=== PATIENT | male | born 1980 | race Caucasian/White ===

== ENCOUNTER 2024-01-01 14:09 | Emergency (ER) | payer MEDICAID ==
[2024-01-01 14:59] LABS: BASOPHILS % (AUTO) 0.9 %; EOSINOPHILS # (AUTO) 0.1 10^3/uL (0.0-0.7); EOSINOPHILS % (AUTO) 1.1 %; HCT - HEMATOCRIT 44.7 % (42.0-52.0); HGB - HEMOGLOBIN 14.6 g/dL (14.0-18.0); LYMPHOCYTES # (AUTO) 2.2 10^3/uL (1.5-3.5); LYMPHOCYTES % (AUTO) 50.3 %; MEAN CORPUSCULAR HEMOGLOBIN 28.5 pg (27.0-31.0); MEAN CORPUSCULAR HGB CONC 32.7 g/dL (32.0-36.0); MEAN CORPUSCULAR VOLUME 87.3 fL (80.0-94.0); MEAN PLATELET VOLUME 9.7 fL (7.4-11.4); MONOCYTES # (AUTO) 0.2 10^3/uL (0.0-1.0); MONOCYTES % (AUTO) 3.4 %; NEUTROPHILS # (AUTO) 1.9 10^3/uL (1.5-6.6); NEUTROPHILS % (AUTO) 44.1 %; PLT - PLATELET COUNT 219 10^3/uL (130-450); RED BLOOD COUNT 5.12 10^6/uL (4.70-6.10); RED CELL DISTRIBUTION WIDTH 12.9 % (12.0-15.0); WHITE BLOOD COUNT 4.4 x10^3/uL (4.8-10.8)
[2024-01-01 15:12] LABS: BILIRUBIN,URINE NEGATIVE (NEGATIVE); GLUCOSE, URINE (UA) >=1000 mg/dL (NEGATIVE); KETONES,URINE (UA) NEGATIVE (NEGATIVE); LEUKOCYTE ESTERASE, URINE NEGATIVE (NEGATIVE); NITRITE,URINE NEGATIVE (NEGATIVE); OCCULT BLOOD,URINE NEGATIVE (NEGATIVE); PH,URINE 5.5 PH (5.0-7.5); PROTEIN,URINE NEGATIVE (NEGATIVE); UROBILINOGEN,URINE 0.2 (NORMAL) E.U./dL (NORMAL)
[2024-01-01 15:17] LABS: ALBUMIN 4.5 g/dL (3.2-5.5); ALKALINE PHOSPHATASE 74 IU/L (42-121); ALT ALANINE AMINOTRANSFERASE 32 IU/L (10-60); AST ASPARTATE AMINOTRANSFERASE 30 IU/L (10-42); BILIRUBIN,TOTAL 0.8 mg/dL (0.2-1.0); BUN - BLOOD UREA NITROGEN 9 mg/dL (6-20); CARBON DIOXIDE - CO2 28 mmol/L (21-32); CHLORIDE 106 mmol/L (101-111); CREATININE 0.7 mg/dL (0.6-1.3); GFR - MDRD 123 (>89); GLUCOSE 327 mg/dL (74-104); POTASSIUM 3.9 mmol/L (3.5-4.5); SODIUM 140 mmol/L (135-145); TOTAL PROTEIN 6.8 g/dL (6.4-8.9)
[2024-01-01 15:19] LABS: CLARITY,URINE CLEAR (CLEAR)
[2024-01-01 15:26] LABS: LIPASE < 10 U/L (11-82)
--- NOTE | 2024-01-01 16:10 | ED Physician Documentation ---
History of Present Illness - Stated complaint Stated Complaint: ETOH W/D - Chief complaint Chief Complaint: Abd Pain - Additonal information Additional information: 43-year-old male with history of type 1 diabetes pancreatitis alcohol dependence presents emergency department with his friend for alcohol intoxication. His friend is going to take him to a rehab facility but given how intoxicated the patient was he told him that he needed to come into the emergency department for further evaluation and clearance of health. Patient is very intoxicated very difficult time getting any history from him he does complain and intermittent abdominal pain he appears comfortable lying in bed. PD PAST MEDICAL HISTORY - Present Medications Home Medications: Ambulatory Orders Medication Instructions Recorded Confirmed Propranolol [Inderal] 10 mg PO DAILY 01/01/24 01/01/24 busPIRone [Buspar] 15 mg PO DAILY 01/01/24 01/01/24 - Allergies Allergies/Adverse Reactions: Allergies Allergy/AdvReac Type Severity Reaction Status Date / Time No Known Drug Allergies Allergy Verified 01/01/24 16:46 PD ED PE NORMAL - Vitals Vital signs reviewed: Yes - General General: No acute distress, Well developed/nourished - HEENT HEENT: Atraumatic, PERRL - Cardiac Cardiac: RRR - Respiratory Respiratory: No respiratory distress - Abdomen Abdomen: Normal bowel sounds, Soft, Non tender, No organomegaly - Back Back: No CVA TTP - Derm Derm: Normal color, Warm and dry, No rash - Extremities Extremities: No deformity, No tenderness to palpate, Normal ROM s pain, No edema, No calf tenderness / cord PD ED PE EXPANDED - Psych Psych: Intoxicated / AOB, Agitated. No: Depressed, Suicidal, Homicidal, Pressured speech Results - Vitals Vitals: Vital Signs - 24 hr 01/01/24 01/01/24 01/01/24 14:33 16:42 18:55 Temperature 36.1 C L 36.5 C Heart Rate 83 85 88 Respiratory 16 16 18 Rate Blood Pressure 127/87 H 126/91 H 125/92 H O2 Saturation 99 99 100 Oxygen O2 Source Room air - Labs Labs: Laboratory Tests 01/01/24 01/01/24 01/01/24 14:43 14:54 14:54 WBC 4.4 L RBC 5.12 Hgb 14.6 Hct 44.7 MCV 87.3 MCH 28.5 MCHC 32.7 RDW 12.9 Plt Count 219 MPV 9.7 Neut # (Auto) 1.9 Lymph # (Auto) 2.2 Young # (Auto) 0.2 Eos # (Auto) 0.1 Baso # (Auto) 0.0 Absolute Nucleated RBC 0.00 Nucleated RBC % 0.0 Sodium 140 Potassium 3.9 Chloride 106 Carbon Dioxide 28 Anion Gap 6.0 BUN 9 Creatinine 0.7 Estimated GFR (MDRD) 123 Glucose 327 H Calcium 9.0 Total Bilirubin 0.8 AST 30 ALT 32 Alkaline Phosphatase 74 Total Protein 6.8 Albumin 4.5 Globulin 2.3 Albumin/Globulin Ratio 2.0 Lipase < 10 L Urine Color YELLOW Urine Clarity CLEAR Urine pH 5.5 Ur Specific [place] 1.020 Urine Protein NEGATIVE Urine Glucose (UA) >=1000 H Urine Ketones NEGATIVE Urine Occult Blood NEGATIVE Urine Nitrite NEGATIVE Urine Bilirubin NEGATIVE Urine Urobilinogen 0.2 (NORMAL) Ur Leukocyte Esterase NEGATIVE Ur Microscopic Review NOT INDICATED Urine Culture Comments NOT INDICATED Ethyl Alcohol 01/01/24 16:19 WBC RBC Hgb Hct MCV MCH MCHC RDW Plt Count MPV Neut # (Auto) Lymph # (Auto) Young # (Auto) Eos # (Auto) Baso # (Auto) Absolute Nucleated RBC Nucleated RBC % Sodium Potassium Chloride Carbon Dioxide Anion Gap BUN Creatinine Estimated GFR (MDRD) Glucose Calcium Total Bilirubin AST ALT Alkaline Phosphatase Total Protein Albumin Globulin Albumin/Globulin Ratio Lipase Urine Color Urine Clarity Urine pH Ur Specific [place] Urine Protein Urine Glucose (UA) Urine Ketones Urine Occult Blood Urine Nitrite Urine Bilirubin Urine Urobilinogen Ur Leukocyte Esterase Ur Microscopic Review Urine Culture Comments Ethyl Alcohol 441.5 - Rads (name of study) Abdominal ultrasound Relevant Findings:: Final report received, EMP independent interpretation of test, Other (Limited study due to patient motion and overlying bowel gas, possible cirrhosis with recannulized umbilical) PD Medical Decision Making - ED course ED course: 43-year-old male presents emergency department quite intoxicated. Is unclear how much she had to drink today as he is not really contributing to the history and providing accurate information. His alcohol level was 441 blood sugars 327 patient is type I diabetic and manages this blood sugars with insulin. Lipase is less than 10 and other than that unremarkable labs. Ultrasound was complete as patient was complaining of some right upper quadrant pain and was worried that something is wrong with his pancreas, lipase again is within normal limits there is limited study due to motion and overlying bowel gas he does have ci rrhosis with recanalized umbilical vein normal-appearing gallbladder with small amount of sludge material. There is no further emergent workup indicated at this point in time he is safe to go to rehab facility he appears to be sobering up and making more sense. Patient says that he wants to go to rehab his friend who is at bedside plans on driving him to rehab where they have confirmed they still have a bed waiting for him. Return precautions given patient safe for discharge no history of withdrawal seizures. Departure - Departure Disposition: 01 Home, Self Care Clinical Impression: ETOH abuse Instructions: ED Alcohol Abuse Comments: PT NAME: JADON MELENDEZ MR#: [id number] REG ER/ED AGE: 43 CI DT/TM: 01/01/24 PCP: : 1980 ATT: SEX: M ORD: [facility] EXAM: [id number] US/ABDLTD ([id number]) PROCEDURE: Abdomen Limited INDICATIONS: RUQ pain, hx of pancreatitis TECHNIQUE: Real-time focused scanning was performed of the abdomen, with image documentation. See below for your abdominal ultrasound results you have been medically cleared to go to rehab. Your labs do not show any significant abnormalities to make sure that you give yourself insulin for your high blood sugar. COMPARISONS: None. FINDINGS: Liver: Liver is normal in size. Heterogeneously echogenic liver parenchyma is seen. No discrete hepatic lesion is noted. Normal hepatopedal flow is seen within the main portal vein. Tubular structure is noted extending from the liver to the umbilicus and may represent recanalized umbilical vein. Gallbladder: Possible sludge material within gallbladder lumen. No gallstones. No gallbladder wall thickening or pericholecystic fluid. No sonographic Tucker's sign. Biliary ducts: Intrahepatic bile ducts are non-dilated. Extrahepatic bile duct c aliber measures 3.5 mm. Normal is 6-7 mm or less in diameter, or 10 mm or less post- cholecystectomy. Pancreas: Not well visualized due to overlying bowel gas. Right kidney: Normal in size and echotexture. Right kidney measures 11.2 cm long. No hydronephrosis or nephrolithiasis. No solid masses. No complex renal cystic lesions which require follow-up. IVC: Intrahepatic inferior vena cava is patent. Miscellaneous: No free abdominal fluid. IMPRESSION: 1. Limited study due to patient motion and overlying bowel gas. 2. Finding is suggestive of cirrhosis. No discrete hepatic lesion. Likely recanalized umbilical vein. Hepatopedal flow is seen in main portal vein. 3. Normal appearing gallbladder with possible small amount of sludge material. No evidence of acute cholecystitis. No biliary ductal dilatation. Reviewed by: Kirby Montero MD on 01/01/2024 6:05 PM PDT Approved by: Kirby Montero MD on 01/01/2024 6:05 PM PDT Station ID: [id number] Forms: PCP List Discharge Date/Time: 01/01/24 19:01
[2024-01-01] MEDS: SODIUM CHLORIDE 0.9% 1,000 ML IV ONE (16:50)
--- NOTE | 2024-01-01 18:06 | Ultrasound Report ---
PROCEDURE: Abdomen Limited INDICATIONS: RUQ pain, hx of pancreatitis TECHNIQUE: Real-time focused scanning was performed of the abdomen, with image documentation. COMPARISONS: None. FINDINGS: Liver: Liver is normal in size. Heterogeneously echogenic liver parenchyma is seen. No discrete hepa tic lesion is noted. Normal hepatopedal flow is seen within the main portal vein. Tubular structure i s noted extending from the liver to the umbilicus and may represent recanalized umbilical vein. Gallbladder: Possible sludge material within gallbladder lumen. No gallstones. No gallbladder wall th ickening or pericholecystic fluid. No sonographic Tucker's sign. Biliary ducts: Intrahepatic bile ducts are non-dilated. Extrahepatic bile duct caliber measures 3.5 mm. Normal is 6-7 mm or less in diameter, or 10 mm or less post-cholecystectomy. Pancreas: Not well visualized due to overlying bowel gas. Right kidney: Normal in size and echotexture. Right kidney measures 11.2 cm long. No hydronephrosis or nephrolithiasis. No solid masses. No complex renal cystic lesions which require follow-up. IVC: Intrahepatic inferior vena cava is patent. Miscellaneous: No free abdominal fluid. IMPRESSION: 1. Limited study due to patient motion and overlying bowel gas. 2. Finding is suggestive of cirrhosis. No discrete hepatic lesion. Likely recanalized umbilical vein. Hepatopedal flow is seen in main portal vein. 3. Normal appearing gallbladder with possible small amount of sludge material. No evidence of acute c holecystitis. No biliary ductal dilatation. Reviewed by: Kirby Montero MD on 01/01/2024 6:05 PM PDT Approved by: Kirby Montero MD on 01/01/2024 6:05 PM PDT Station ID: [id number]
[2024-01-01 19:04] VITALS: BP 125/92; O2SAT 100
== END 2024-01-01 19:01 | disposition home or self-care (01) ==
LOC: ED 14:09
DX: F10.229 Alcohol dependence with intoxication, unspecified (principal); K70.30 Alcoholic cirrhosis of liver without ascites; Y90.8 Blood alcohol level of 240 mg/100 ml or more; E10.9 Type 1 diabetes mellitus without complications; Z79.4 Long term (current) use of insulin
CPT/HCPCS: 36415; 80053; 81001; 81003; 82077; 83690; 85025; 87086; 96360; 99283